=== PATIENT | female | born 1970 | race Two or more races ===

== ENCOUNTER 2020-08-21 06:00 | Day surgery (SDC) | payer OTHER ==
[~2020-08-21 06:00] MED LIST: SYNTHROID112 MCG PO
== END 2020-08-21 10:20 | disposition home or self-care (01) ==
LOC: AMB-ENDOS 06:00
PROVIDERS: ATTEND Surgery
DX: D13.1 Benign neoplasm of stomach (principal); K44.9 Diaphragmatic hernia without obstruction or gangrene; Z20.828 Contact with and (suspected) exposure to other viral communicable diseases